=== PATIENT | male | born 1990 | race Caucasian/White ===

== ENCOUNTER 2024-11-02 15:44 | Emergency (ER) | payer SELFPAY ==
[~2024-11-02] VITALS: Ht 180.3 cm; Wt 90.7 kg
[2024-11-02] MEDS ORDERED: NOVOLOG10 ML SC (16:04)
[2024-11-02] MEDS ORDERED: TRESIBA100 UNIT/1 SQ (16:04)
[2024-11-02] MEDS ORDERED: SODIUM CHLORIDE 0.9% 1,000 ML IV ONE ×2 (16:35→17:15)
[2024-11-02] MEDS ORDERED: Metoclopramide Hydrochloride 10 MG/2 ML VIAL IV ONE (16:35)
[2024-11-02] MEDS ORDERED: diphenhydrAMINE hydrochloride 50 MG/ML VIAL IV ONE (16:35)
[2024-11-02 16:47] LABS: BASO % 0.4 % (0.0-1.0); EOS % 0.3 % (1.0-4.0); HEMATOCRIT 37.9 % (42.0-52.0); MEAN CELL VOLUME 87.1 fl (80.0-94.0); MEAN CORPUSCULAR HGB 30.3 pg (27.0-31.0); MEAN CORPUSCULAR HGB CONC 34.8 g/dl (33.0-37.0); MEAN PLATELET VOLUME 9.6 fl (9.6-12.3); MONO # 0.3 10*3/uL (0.1-1.0); MONO % 3.7 % (3.0-9.0); NEUT # 6.6 10*3/uL (2.3-7.9); NEUT % 85.2 % (47.0-73.0); PLATELET COUNT AUTOMATED 221 10*3/uL (130-400); RED BLOOD COUNT 4.35 10*6/uL (4.50-5.90); RED CELL DISTRI WIDTH 11.9 % (0-14.5); WHITE BLOOD COUNT 7.8 10*3/uL (4.8-10.8)
[2024-11-02 16:48] LABS: VENOUS BLOOD GAS O2 SAT 55.3 % (60.0-85.0)
[2024-11-02] MEDS ORDERED: INSULIN REGULAR, HUMAN 1 UNIT/0.01 ML IV ONE (17:20)
== END 2024-11-02 18:55 | disposition left against medical advice (07) ==
LOC: ED 15:44
PROVIDERS: Emergency Medicine
DX: E10.10 Type 1 diabetes mellitus with ketoacidosis without coma (principal); N17.9 Acute kidney failure, unspecified; R11.2 Nausea with vomiting, unspecified; R19.7 Diarrhea, unspecified; Z53.29 Procedure and treatment not carried out because of patient's decision for other reasons